=== PATIENT | male | born 1970 | race Caucasian/White ===

== ENCOUNTER 2020-11-27 16:47 | Outpatient (CLI) | payer BC, SELFPAY | END 2020-11-27 16:48 | disposition home or self-care (01) | LOC: ANHCOVIDVC 16:47 | PROVIDERS: PCP Family Medicine | DX: Z23 Encounter for immunization (principal) | CPT/HCPCS: 0001A; 91300 ==

== ENCOUNTER 2020-12-18 16:49 | Outpatient (CLI) | payer BC, SELFPAY | END 2020-12-18 16:50 | disposition home or self-care (01) | LOC: ANHCOVIDVC 16:49 | PROVIDERS: PCP Family Medicine | DX: Z23 Encounter for immunization (principal) | CPT/HCPCS: 0002A; 91300 ==

== ENCOUNTER 2021-09-10 00:36 | Day surgery (SDC) | payer BC, SELFPAY ==
[2021-08-28 14:23] VITALS: BMI 33.3
[2021-09-10 06:38] VITALS: BP 129/90; PULSE 74; RESP 18; TEMP 36.6; O2SAT 99
[2021-09-10] MEDS: LACTATED RINGERS 1,000 ML 150 ML IV CONT (06:50)
--- NOTE | 2021-09-10 07:47 | WPDGICN ---
Assessment and Plan Assessment and plan (1) Encounter for colonoscopy in patient with family history of colon polyps: Code(s): Z12.11 - Encounter for screening for malignant neoplasm of colon; Z83.71 - Family history of colonic polyps Status: Acute Assessment and Plan: Patient has 2 brothers have been found to have colon polyps. Plan is for surveillance colonoscopy at this time further recommendations will be given after endoscopy. GI Consult Note Consult date/time: 09/10/21 07:47 HPI: Dominick Galvez is a 51 year old male Presents for screening colonoscopy. Patient's family history is significant 2 brothers have had colon polyps. In 2016 patient had at benign hyperplastic polyp removed from the colon. The patient's current weight appetite and bowel movements are normal. He denies abdominal pain. His family history is as stated. Presents today for neoplasia screening. Review of Systems Review of Systems: All systems reviewed & are unremarkable except as noted in HPI and below PMFSH Past Medical History Medical History (Updated 09/10/21 @ 07:49 by Khai Olson MD) Afib HLD (hyperlipidemia) Normal colonoscopy (~2019) Pacemaker Sick sinus syndrome Family History Family History Mother Patient's mother is in good health Father Patient's father is in good health Family history of Parkinson's disease Sibling Patient's brother is in good health Grandparent Family history of lung cancer Social History Social History (Updated 04/06/21 @ 09:02 by Hayley Edouard [facility]) Smoking status: Never smoker Second hand tobacco smoke exposure: No Alcohol intake: former Alcohol use details: seldom; socially Substance use: never Substance use type: does not use Living arrangements: with family Spiritual care concerns: No Meds Home Medications and Allergies Home Medications Medication Instructions Recorded Confirmed Type omega-3 fatty acids 1,000 mg 1,000 mg PO DAILY 04/04/20 09/10/21 History capsule aspirin 81 mg tablet,delayed 81 mg PO DAILY 04/06/21 09/10/21 History release Allergies Allergy/AdvReac Type Severity Reaction Status Date / Time Penicillins Allergy Mild Unknown Verified 09/10/21 06:36 Vital Signs Vital Signs - 24 hr 09/10/21 06:38 Temperature 97.8 F Pulse Rate 74 Respiratory Rate 18 Blood Pressure 129/90 Pulse Oximetry 99 Exam Narrative: Physical exam reveals patient to be alert. Vital signs stable. HEENT exam is unremarkable. Patient is anicteric. Lungs are clear to auscultation and percussion. Heart is without murmur or extra sounds. Abdominal exam bowel sounds are present soft nontender with no organomegaly. Digital external rectal exam is normal.
[2021-09-10 07:48] VITALS: BP 121/86; PULSE 78; RESP 26; O2SAT 96
[2021-09-10 07:58] VITALS: BP 113/71; PULSE 71; RESP 16; O2SAT 99
[2021-09-10 08:08] VITALS: BP 156/79; PULSE 70; RESP 25; O2SAT 99
== END 2021-09-10 08:20 | disposition home or self-care (01) ==
PROVIDERS: PCP Family Medicine; Visit Provider Internal Medicine Gastroenterology
PROC: 0DJD8ZZ Inspection of Lower Intestinal Tract, Via Natural or Artificial Opening Endoscopic (ICD-10-PCS; CPT 45378; principal; 2021-09-10 07:30)
DX: Z12.11 Encounter for screening for malignant neoplasm of colon (principal); K64.8 Other hemorrhoids; I48.20 Chronic atrial fibrillation, unspecified; I49.5 Sick sinus syndrome; E78.5 Hyperlipidemia, unspecified; Z95.0 Presence of cardiac pacemaker
CPT/HCPCS: 45378; J2704; J7120

== ENCOUNTER 2024-08-31 01:54 | Day surgery (SDC) | payer BC, SELFPAY ==
[2024-08-22 12:45] VITALS: BMI 31.8
--- NOTE | 2024-08-31 09:41 | WPDANESEPPF ---
Anes - Initial Pre Proc Eval Procedure: Operation Date: 08/31/24 14:00 Proposed Procedures p Esophagogastroduodenoscopy - Jose Fonseca MD Date/Time: 08/31/24 09:41 Surgeon: Jose Fonseca MD Pre Op Diagnosis: dysphagia Patient Data Age: 54 Gender: M Height: 1.83 m Weight: 106.6 kg Allergies Allergy/AdvReac Type Severity Reaction Status Date / Time Penicillins Allergy Mild Unknown Verified 08/22/24 12:44 Home Medications ?Medication ?Instructions ?Recorded ?Confirmed ?Type omega-3 fatty acids 1,000 mg 1,000 mg PO DAILY 04/04/20 08/22/24 History capsule (Fish Oil Concentrate) aspirin 81 mg tablet,delayed 81 mg PO DAILY 04/06/21 08/22/24 History release (Adult Aspirin Regimen) magnesium 200 mg tablet 200 mg PO DAILY 04/23/22 08/22/24 History losartan 50 mg tablet 50 mg PO DAILY #90 tabs 05/14/24 08/22/24 Rx omeprazole 40 mg capsule,delayed 40 mg PO DAILY #30 caps 06/28/24 08/22/24 Rx release Patient hx anesthesia problems: none Family hx anesthesia problems: none Results Review: All pre-operative results and documents have been reviewed as part of the pre-operative evaluation. [facility] Past Medical History Medical History Statin declined Hx of cardiac pacemaker Sick sinus syndrome Afib HLD (hyperlipidemia) Normal colonoscopy (~2018) Pacemaker Family History Family History Mother Patient's mother is in good health Arthritis Cataracts, bilateral Father Patient's father is in good health Family history of Parkinson's disease Sibling Patient's brother is in good health Grandparent Family history of lung cancer Social History Social History Smoking status: Never smoker Second hand tobacco smoke exposure: No Alcohol intake: former Alcohol use details: seldom; socially Substance use: never Substance use type: does not use Lack of Transportation: No Lack of Food: Never True Current Housing: I Have Housing Concerned About Future Housing: No Difficulty Paying Gas/Electric Bills: No Difficulty Paying for Meds: No Currently Unemployed: No Education: Decline to Answer Difficulty w/ Childcare or Family Care: No Living arrangements: with family Occupation/Education: occupation Gender identity (if verbalized by the patient): Male Spiritual care concerns: No Agree to blood products: Yes Anes - Eval Final PreProcedure Day of Procedure 08/31/24 09:41 Patient weight: obese Heart: regular rate and rhythm Lungs: clear to auscultation Airway: Mallampati scale class II Neurological: alert and oriented Last oral intake: >/= 8 hours ASA classification: III Emergent: no Anesthetic plan: proceed Anesthesia type and monitoring: general GIVS and standard monitoring Results Review: All pre-operative results and documents have been reviewed as part of the pre-operative evaluation. Informed Consent: The patient's anesthetic plan and its attendant risks and benefits were discussed with the patient/family/POA. Questions were solicited and answers provided to the satisfaction of the patient/family/POA.
[2024-08-31 09:45] VITALS: BP 147/104; PULSE 71; RESP 16; TEMP 37.1; O2SAT 97
[2024-08-31] MEDS: LACTATED RINGERS 1,000 ML 150 ML IV CONT (09:53)
--- NOTE | 2024-08-31 10:08 | PM.HPGS ---
History of Present Illness History of Present Illness Consent: Risks, benefits, and alternatives have been discussed and questions answered. Patient agrees to proceed with procedure. Chief complaint: dysphagia Narrative: Dominick Galvez is a 54 year old male here with dysphagia, never had egd Review of Systems Review of Systems: All systems reviewed & are unremarkable except as noted in HPI and below PMFSH Past Medical History Medical History (Updated 08/31/24 @ 10:09 by Jose Fonseca MD) Dysphagia Statin declined Hx of cardiac pacemaker Sick sinus syndrome Afib HLD (hyperlipidemia) Normal colonoscopy (~2019) Pacemaker Family History Family History Mother Patient's mother is in good health Arthritis Cataracts, bilateral Father Patient's father is in good health Family history of Parkinson's disease Sibling Patient's brother is in good health Grandparent Family history of lung cancer Social History Social History Smoking status: Never smoker Second hand tobacco smoke exposure: No Alcohol intake: former Alcohol use details: seldom; socially Substance use: never Substance use type: does not use Lack of Transportation: No Lack of Food: Never True Current Housing: I Have Housing Concerned About Future Housing: No Difficulty Paying Gas/Electric Bills: No Difficulty Paying for Meds: No Currently Unemployed: No Education: Decline to Answer Difficulty w/ Childcare or Family Care: No Living arrangements: with family Occupation/Education: occupation Gender identity (if verbalized by the patient): Male Spiritual care concerns: No Agree to blood products: Yes Meds Home Medications and Allergies Home Medications ?Medication ?Instructions ?Recorded ?Confirmed ?Type omega-3 fatty acids 1,000 mg 1,000 mg PO DAILY 04/04/20 08/31/24 History capsule (Fish Oil Concentrate) aspirin 81 mg tablet,delayed 81 mg PO DAILY 04/06/21 08/31/24 History release (Adult Aspirin Regimen) magnesium 200 mg tablet 200 mg PO DAILY 04/23/22 08/31/24 History losartan 50 mg tablet 50 mg PO DAILY #90 tabs 05/14/24 08/31/24 Rx omeprazole 40 mg capsule,delayed 40 mg PO DAILY #30 caps 06/28/24 08/31/24 Rx release Allergies Allergy/AdvReac Type Severity Reaction Status Date / Time Penicillins Allergy Mild Unknown Verified 08/31/24 09:43 Vital Signs Vital Signs - 24 hr 08/31/24 09:45 Temperature 98.8 F Pulse Rate 71 Respiratory Rate 16 Blood Pressure 147/104 H Pulse Oximetry 97 Oxygen Delivery Room Air Exam Const: General: comfortable and no acute distress HENMT: Face/Nose/Sinus: Normal nares present Eyes: General: appearance normal, both eyes and all related structures Neck: Neck: no JVD Resp: Auscultation: clear to auscultation bilaterally Cardio: Rate: regular rate Rhythm: regular rhythm GI: Inspection: non-distended GI Palp: Yes Soft to palpation Skin: General skin exam: normal color Neuro: General: gait normal Speech: normal speech Extrem: General: normal to inspection Psych: Mental Status: mental status grossly normal Assessment and Plan Assessment and plan (1) Dysphagia: Code(s): R13.10 - Dysphagia, unspecified Status: Acute Assessment and Plan: egd
[2024-08-31 10:15] VITALS: BP 120/66; PULSE 74; RESP 15; O2SAT 95
[2024-08-31 10:25] VITALS: BP 132/78; PULSE 64; RESP 21; O2SAT 98
[2024-08-31 10:35] VITALS: BP 135/89; PULSE 64; RESP 15; O2SAT 98
== END 2024-08-31 10:52 | disposition home or self-care (01) ==
PROVIDERS: PCP Family Medicine; Visit Provider Internal Medicine Gastroenterology
PROC: 0DJ08ZZ Inspection of Upper Intestinal Tract, Via Natural or Artificial Opening Endoscopic (ICD-10-PCS; CPT 43235; principal; 2024-08-31 14:00)
DX: Q39.4 Esophageal web (principal); E78.5 Hyperlipidemia, unspecified; I48.91 Unspecified atrial fibrillation; Z95.0 Presence of cardiac pacemaker; E66.9 Obesity, unspecified; Z68.32 Body mass index [BMI] 32.0-32.9, adult
CPT/HCPCS: 43249; C1726; J2704; J7120